=== PATIENT | male | born 1970 | race Two or more races ===

== ENCOUNTER 2022-11-05 20:54 | Emergency (ER) | payer OTHER ==
[~2022-11-05] VITALS: Ht 180.3 cm; Wt 83.9 kg
== END 2022-11-05 23:01 | disposition home or self-care (01) ==
LOC: ER 20:54
DX: S69.81XA Other specified injuries of right wrist, hand and finger(s), initial encounter (principal); W46.1XXA Contact with contaminated hypodermic needle, initial encounter; Y93.89 Activity, other specified; Y92.89 Other specified places as the place of occurrence of the external cause; Y99.8 Other external cause status